=== PATIENT | female | born 1940 | race Caucasian/White ===

== ENCOUNTER 2017-01-18 11:45 | Emergency (ER) | payer MEDICARE ==
[~2017-01-18] VITALS: Ht 157.4 cm; Wt 68.0 kg
[~2017-01-18 11:45] MED LIST: ASPIRIN81 M1 PO; CENTRUM SILVER1 TA1 PO; HYDROCHLOROTHIA25 MG PO; IBU-8800 MG PO; Lopressor25 MG PO; NORVASC5 MG PO; SIMVASTATIN20 MG PO
[2017-01-18 13:16] LABS: BASO # 0.1 10*3/uL (0.0-0.1); BASO % 1.2 % (0.0-1.0); EOS # 0.4 10*3/uL (0.0-0.4); EOS % 4.2 % (1.0-4.0); HEMATOCRIT 38.3 % (37.0-47.0); HEMOGLOBIN 12.9 g/dl (12.0-16.0); LYMPH # 1.1 10*3/uL (1.3-4.4); LYMPH % 12.9 % (27.0-41.0); MEAN CELL VOLUME 89.1 fl (81.0-99.0); MEAN CORPUSCULAR HGB CONC 33.7 g/dl (33.0-37.0); MEAN PLATELET VOLUME 9.3 fl (9.6-12.3); MONO # 0.5 10*3/uL (0.1-1.0); MONO % 6.1 % (3.0-9.0); NEUT # 6.5 10*3/uL (2.3-7.9); NEUT % 75.3 % (47.0-73.0); PLATELET COUNT AUTOMATED 328 10*3/uL (130-400); RED CELL DISTRI WIDTH 12.5 % (0-14.5); WHITE BLOOD COUNT 8.6 10*3/uL (4.8-10.8)
[2017-01-18 13:28] LABS: BUN 14 mg/dl (7-24); CHLORIDE 95 mmol/L (98-107); CREATININE 0.67 mg/dL (0.55-1.02); POTASSIUM 4.3 mmol/L (3.5-5.1); SODIUM 131 mmol/L (136-145)
[2017-01-18 20:49] LABS: HEMATOCRIT 36.6 % (37.0-47.0); HEMOGLOBIN 12.5 g/dl (12.0-16.0); MEAN CELL VOLUME 90.1 fl (81.0-99.0); MEAN CORPUSCULAR HGB 30.8 pg (27.0-31.0); MEAN CORPUSCULAR HGB CONC 34.2 g/dl (33.0-37.0); MEAN PLATELET VOLUME 9.3 fl (9.6-12.3); PLATELET COUNT AUTOMATED 353 10*3/uL (130-400); RED BLOOD COUNT 4.06 10*6/uL (4.10-5.10); RED CELL DISTRI WIDTH 12.4 % (0-14.5); WHITE BLOOD COUNT 12.4 10*3/uL (4.8-10.8)
[2017-01-18 21:08] LABS: ALBUMIN 3.4 gm/dl (3.1-4.5); ALKALINE PHOSPHATASE 65 U/L (45-117); BUN 15 mg/dl (7-24); CHLORIDE 97 mmol/L (98-107); CREATININE 1.05 mg/dL (0.55-1.02); SGOT/AST 15 IU/L (3-35); SGPT/ALT 25 U/L (12-78); SODIUM 134 mmol/L (136-145); TOTAL PROTEIN 6.9 gm/dL (6.4-8.2)
[2017-01-18 21:09] LABS: TOTAL CELLS COUNTED 100 #CELLS
[2017-01-18 21:10] LABS: PLATELET SUFFICIENCY NORMAL (NORMAL); TROPONIN I 0.017 ng/ml (<0.045)
== END 2017-01-18 23:59 | disposition short-term general hospital (02) ==
LOC: ED 11:45
PROVIDERS: Internal Medicine; Physician Assistant
DX: S01.01XA Laceration without foreign body of scalp, initial encounter (principal); S70.02XA Contusion of left hip, initial encounter; S06.300A Unspecified focal traumatic brain injury without loss of consciousness, initial encounter; Z79.82 Long term (current) use of aspirin; Z79.899 Other long term (current) drug therapy; W18.39XA Other fall on same level, initial encounter; Y93.89 Activity, other specified; Y92.89 Other specified places as the place of occurrence of the external cause; Y99.8 Other external cause status

== ENCOUNTER 2017-01-26 15:09 | Emergency (ER) | payer MEDICARE ==
[~2017-01-26] VITALS: Ht 167.6 cm; Wt 83.5 kg
[2017-01-26] MEDS ORDERED: NORVASC5 MG PO (16:54)
== END 2017-01-26 17:02 | disposition home or self-care (01) ==
LOC: ED 15:09
DX: I10 Essential (primary) hypertension (principal); E87.1 Hypo-osmolality and hyponatremia; Z79.82 Long term (current) use of aspirin; Z79.899 Other long term (current) drug therapy; Z90.710 Acquired absence of both cervix and uterus

== ENCOUNTER 2018-11-25 20:10 | Emergency (ER) | payer MEDICARE ==
[~2018-11-25] VITALS: Ht 167.6 cm; Wt 81.6 kg
[2018-11-25] MEDS ORDERED: Lopressor25 MG PO (20:15)
[2018-11-25 22:50] LABS: ALBUMIN 3.7 gm/dl (3.1-4.5); ALKALINE PHOSPHATASE 83 U/L (45-117); BUN 24 mg/dl (7-24); CHLORIDE 99 mmol/L (98-107); CREATININE 0.81 mg/dL (0.55-1.02); SGOT/AST 15 IU/L (3-35); SGPT/ALT 19 U/L (12-78); SODIUM 132 mmol/L (136-145); TOTAL PROTEIN 7.7 gm/dL (6.4-8.2)
[2018-11-25 22:56] LABS: TROPONIN I < 0.015 ng/ml (<0.045)
[2018-11-25 23:25] LABS: BASO # 0.1 10*3/uL (0.0-0.1); BASO % 0.5 % (0.0-1.0); EOS % 0.2 % (1.0-4.0); HEMATOCRIT 37.8 % (37.0-47.0); HEMOGLOBIN 12.7 g/dl (12.0-16.0); LYMPH # 0.7 10*3/uL (1.3-4.4); MEAN CELL VOLUME 87.5 fl (81.0-99.0); MEAN CORPUSCULAR HGB 29.4 pg (27.0-31.0); MEAN CORPUSCULAR HGB CONC 33.6 g/dl (33.0-37.0); MEAN PLATELET VOLUME 9.7 fl (9.6-12.3); MONO # 0.4 10*3/uL (0.1-1.0); MONO % 3.2 % (3.0-9.0); NEUT # 11.8 10*3/uL (2.3-7.9); NEUT % 90.8 % (47.0-73.0); PLATELET COUNT AUTOMATED 346 10*3/uL (130-400); RED BLOOD COUNT 4.32 10*6/uL (4.10-5.10); WHITE BLOOD COUNT 12.9 10*3/uL (4.8-10.8)
[2018-11-26 02:17] LABS: BILIRUBIN NEGATIVE (NEGATIVE); BLOOD NEGATIVE (NEGATIVE); CLARITY CLEAR (CLEAR); COLOR YELLOW (YELLOW); GLUCOSE NEGATIVE (NEGATIVE); KETONE NEGATIVE (NEGATIVE); LEUKO ESTERASE TRACE (NEGATIVE); NITRITE NEGATIVE (NEGATIVE); UROBILINOGEN 0.2 E.U./dl (0.2-1.0)
[2018-11-26 02:29] LABS: BACTERIA 1+; RBC 0-2 rbc/hpf (0-2)
== END 2018-11-26 08:25 | disposition short-term general hospital (02) ==
LOC: ED 20:10
PROVIDERS: Emergency Medicine
DX: R20.0 Anesthesia of skin (principal); R29.810 Facial weakness; R55 Syncope and collapse; I10 Essential (primary) hypertension; Z86.79 Personal history of other diseases of the circulatory system; Z79.899 Other long term (current) drug therapy; Z90.710 Acquired absence of both cervix and uterus

== ENCOUNTER 2020-09-26 01:47 | Emergency (ER) | payer MEDICARE ==
[2020-09-26 02:27] LABS: BASO # 0.1 10*3/uL (0.0-0.1); BASO % 0.6 % (0.0-1.0); EOS # 0.4 10*3/uL (0.0-0.4); EOS % 3.5 % (1.0-4.0); HEMATOCRIT 38.9 % (37.0-47.0); LYMPH # 1.5 10*3/uL (1.3-4.4); LYMPH % 12.7 % (27.0-41.0); MEAN CELL VOLUME 88.6 fl (81.0-99.0); MEAN CORPUSCULAR HGB 28.7 pg (27.0-31.0); MEAN CORPUSCULAR HGB CONC 32.4 g/dl (33.0-37.0); MEAN PLATELET VOLUME 9.3 fl (9.6-12.3); MONO # 0.7 10*3/uL (0.1-1.0); MONO % 6.1 % (3.0-9.0); NEUT # 9.1 10*3/uL (2.3-7.9); NEUT % 76.8 % (47.0-73.0); PLATELET COUNT AUTOMATED 366 10*3/uL (130-400); RED BLOOD COUNT 4.39 10*6/uL (4.10-5.10); RED CELL DISTRI WIDTH 12.9 % (0-14.5); WHITE BLOOD COUNT 11.8 10*3/uL (4.8-10.8)
[2020-09-26 02:44] LABS: ALBUMIN 3.4 gm/dl (3.1-4.5); ALKALINE PHOSPHATASE 87 U/L (45-117); BUN 22 mg/dl (7-24); CHLORIDE 100 mmol/L (98-107); CREATININE 0.89 mg/dL (0.55-1.02); POTASSIUM 3.8 mmol/L (3.5-5.1); SGOT/AST 12 IU/L (3-35); SGPT/ALT 22 U/L (12-78); SODIUM 135 mmol/L (136-145); TOTAL PROTEIN 7.2 gm/dL (6.4-8.2)
[2020-09-26 02:48] LABS: TROPONIN I < 0.015 ng/ml (<0.045)
== END 2020-09-26 10:00 ==
LOC: ED 01:47
PROVIDERS: Emergency Medicine
DX: R55 Syncope and collapse (principal); R11.2 Nausea with vomiting, unspecified; Z79.899 Other long term (current) drug therapy; Z90.710 Acquired absence of both cervix and uterus

== ENCOUNTER 2023-11-03 19:09 | Inpatient (IN) | payer MEDICARE ==
[~2023-11-03] VITALS: Ht 167.6 cm; Wt 66.0 kg
[2023-11-03 19:12] VITALS: BP 144/78
[2023-11-03] MEDS ORDERED: Midazolam Hydrochloride 5 MG/5 ML VIAL IM ONE (19:30)
[2023-11-03 19:48] LABS: BASO # 0.1 10*3/uL (0.0-0.1); BASO % 1.5 % (0.0-1.0); EOS # 0.7 10*3/uL (0.0-0.4); EOS % 13.2 % (1.0-4.0); LYMPH # 1.3 10*3/uL (1.3-4.4); LYMPH % 24.2 % (27.0-41.0); MEAN CELL VOLUME 90.5 fl (81.0-99.0); MEAN CORPUSCULAR HGB 29.8 pg (27.0-31.0); MEAN CORPUSCULAR HGB CONC 32.9 g/dl (33.0-37.0); MEAN PLATELET VOLUME 9.3 fl (9.6-12.3); MONO # 0.4 10*3/uL (0.1-1.0); MONO % 7.8 % (3.0-9.0); NEUT # 2.9 10*3/uL (2.3-7.9); NEUT % 53.1 % (47.0-73.0); PLATELET COUNT AUTOMATED 281 10*3/uL (130-400); WHITE BLOOD COUNT 5.4 10*3/uL (4.8-10.8)
[2023-11-03 20:05] LABS: BUN 22 mg/dl (9-23); CHLORIDE 100 mmol/L (98-107); POTASSIUM 4.6 mmol/L (3.4-5.1)
[2023-11-03] MEDS ORDERED: MORPHINE Sulfate 2 MG/ML SYR IM ONE (22:05)
[2023-11-03] MEDS ORDERED: BISACODYL 10 MG SUPP R PRN (22:30)
[2023-11-03] MEDS ORDERED: Ondansetron Hydrochloride 4 MG/2 ML VIAL IV PRN (22:30)
[2023-11-03] MEDS ORDERED: BISACODYL 5 MG TAB PO PRN (22:30)
[2023-11-03] MEDS ORDERED: Magnesium Hydroxide 30 ML UDC PO PRN (22:30)
[2023-11-03] MEDS ORDERED: ACETAMINOPHEN 325 MG TAB PO PRN (22:30)
[2023-11-03] MEDS ORDERED: MORPHINE Sulfate 2 MG/ML SYR IV PRN (22:30)
[2023-11-03] MEDS ORDERED: ACETAMINOPHEN 650 MG SUPP R PRN (22:30)
[2023-11-03] MEDS ORDERED: Acetaminophen/Hydrocodone 5 MG/325 MG TABLET PO PRN (22:30)
[2023-11-03 23:05] VITALS: BP 139/70
[2023-11-04] MEDS ORDERED: ATORVASTATIN CA20 M1 PO (02:30)
[2023-11-04] MEDS ORDERED: AMLODIPINE BESY10 MG PO (03:22)
[2023-11-04] MEDS ORDERED: ESCITALOPRAM OX10 MG PO (03:25)
[2023-11-04] MEDS ORDERED: NEURONTIN300 MG PO (03:26)
[2023-11-04] MEDS ORDERED: FISH OIL 1,0001 EAC1 PO (03:27)
[2023-11-04] MEDS ORDERED: PANTOPRAZOLE SO40 MG PO (03:30)
[2023-11-04] MEDS ORDERED: VITAMIN D310 MC1 PO (03:30)
[2023-11-04] MEDS ORDERED: MELATONIN3 MG PO (03:31)
[2023-11-04] MEDS ORDERED: BIOTENE DRY M1000 ML PO (03:32)
[2023-11-04] MEDS ORDERED: SENNA8.6 MG PO (03:33)
[2023-11-04] MEDS ORDERED: MIRALAX17 GM PO (03:34)
[2023-11-04] MEDS ORDERED: SODIUM CHLORIDE 0.9% 1,000 ML IV ONE (05:55)
[2023-11-04 06:15] LABS: HEMATOCRIT 38.6 % (37.0-47.0); MEAN CELL VOLUME 91.3 fl (81.0-99.0); MEAN CORPUSCULAR HGB 29.8 pg (27.0-31.0); MEAN CORPUSCULAR HGB CONC 32.6 g/dl (33.0-37.0); MEAN PLATELET VOLUME 9.7 fl (9.6-12.3); PLATELET COUNT AUTOMATED 250 10*3/uL (130-400); RED BLOOD COUNT 4.23 10*6/uL (4.10-5.10); RED CELL DISTRI WIDTH 13.1 % (0-14.5); WHITE BLOOD COUNT 14.4 10*3/uL (4.8-10.8)
[2023-11-04 06:18] LABS: MANUAL DIFF REFLEX YES
[2023-11-04 07:29] LABS: PLATELET SUFFICIENCY NORMAL (NORMAL); TOTAL CELLS COUNTED 100 #CELLS
[2023-11-04 07:58] LABS: ALKALINE PHOSPHATASE 65 U/L (46-116); BUN 26 mg/dl (9-23); CHLORIDE 101 mmol/L (98-107); POTASSIUM 4.2 mmol/L (3.4-5.1); SGPT/ALT 25 U/L (5-49); TOTAL PROTEIN 6.2 gm/dL (6.0-8.0)
[2023-11-04 08:17] VITALS: BP 120/49
[2023-11-04 11:38] VITALS: BP 126/52
[2023-11-04 14:49] LABS: BILIRUBIN Negative (Negative); BLOOD Negative (Negative); CLARITY Clear (Clear); COLOR Yellow (Yellow); GLUCOSE Negative (Negative); KETONE Negative (Negative); LEUKO ESTERASE 1+ (Negative); NITRITE Negative (Negative); PH 6.5 (4.5-8.0); SPECIFIC GRAVITY 1.015 (1.001-1.030); UROBILINOGEN 0.2 E.U./dl (0.0-1.0)
[2023-11-04 15:06] LABS: BACTERIA 1+
[2023-11-04 15:07] LABS: HYALINE CAST 0-2
[2023-11-04 15:15] VITALS: BP 151/58
[2023-11-04 20:00] VITALS: BP 157/58
[2023-11-05] VITALS (9 sets, daily range): BP systolic 114–149; BP diastolic 52–85
[2023-11-05 07:20] LABS: BASO # 0.1 10*3/uL (0.0-0.1); BASO % 0.6 % (0.0-1.0); EOS # 0.8 10*3/uL (0.0-0.4); EOS % 7.1 % (1.0-4.0); HEMATOCRIT 35.7 % (37.0-47.0); LYMPH # 1.3 10*3/uL (1.3-4.4); MEAN CELL VOLUME 88.6 fl (81.0-99.0); MEAN CORPUSCULAR HGB 29.5 pg (27.0-31.0); MEAN CORPUSCULAR HGB CONC 33.3 g/dl (33.0-37.0); MEAN PLATELET VOLUME 10.2 fl (9.6-12.3); MONO # 0.6 10*3/uL (0.1-1.0); MONO % 5.1 % (3.0-9.0); NEUT # 8.2 10*3/uL (2.3-7.9); NEUT % 74.9 % (47.0-73.0); PLATELET COUNT AUTOMATED 240 10*3/uL (130-400); RED BLOOD COUNT 4.03 10*6/uL (4.10-5.10); RED CELL DISTRI WIDTH 13.4 % (0-14.5)
[2023-11-05 07:35] LABS: BUN 21 mg/dl (9-23); CHLORIDE 100 mmol/L (98-107); POTASSIUM 3.9 mmol/L (3.4-5.1)
[2023-11-05] MEDS ORDERED: ceFAZolin sodium/sodium chlor 20 ML IV ONE ×2 (08:00→08:04)
[2023-11-05] MEDS ORDERED: Lactated Ringer's Solution 1,000 ML IV ONE ×3 (08:00→09:25)
[2023-11-05] MEDS ORDERED: ACETAMINOPHEN 100 ML IV ONE (08:03)
[2023-11-05] MEDS ORDERED: Bupivacaine Hydrochloride/Ep2 30 ML VIAL ONE (08:03)
[2023-11-05] MEDS ORDERED: EPINEPHrine/Lidocaine Hydroc 20 ML VIAL ONE (09:09)
[2023-11-05] MEDS ORDERED: ASPIRIN ENTERIC COATED 81 MG TAB PO SCH (10:00)
[2023-11-05] MEDS ORDERED: Cholecalciferol 2,000 UNIT TABLET (50 MCG) PO SCH (10:00)
[2023-11-05] MEDS ORDERED: MORPHINE Sulfate 2 MG/ML SYR IV PRN (10:00)
[2023-11-05] MEDS ORDERED: Phenylephrine Hydrochloride 1 MG/10 ML SYRINGE IV ONE (11:02)
[2023-11-05] MEDS ORDERED: Dexamethasone Sodium Phospha 4 MG/ML VIAL IV ONE (11:02)
[2023-11-05] MEDS ORDERED: PROPOFOL 200 MG/20 ML VIAL IV ONE (11:02)
[2023-11-05] MEDS ORDERED: Ondansetron Hydrochloride 4 MG/2 ML VIAL IV ONE (11:02)
[2023-11-05] MEDS ORDERED: SEVOFLURANE 250 ML BOT INH ONE (11:02)
[2023-11-05] MEDS ORDERED: ceFAZolin sodium 1 GM in SYRINGE INFUSION 10 ML IV SCH (14:00)
[2023-11-05] MEDS ORDERED: ATORVASTATIN CALCIUM 20 MG TAB PO SCH (18:00)
[2023-11-05] MEDS ORDERED: GABAPENTIN 300 MG CAP PO SCH (22:00)
[2023-11-05] MEDS ORDERED: amLODIPine besylate 10 MG TAB PO SCH (22:00)
[2023-11-05] MEDS ORDERED: Metoprolol Tartrate 25 MG TAB PO SCH (22:00)
[2023-11-05] MEDS ORDERED: Aloe Vera/Carboxymethylcellu 44.3 ML CANS PO SCH (22:00)
[2023-11-05] MEDS ORDERED: ESCITALOPRAM OXALATE 10 MG TAB PO SCH (22:00)
[2023-11-05] MEDS ORDERED: Sennosides A and B 8.6 MG TAB PO SCH (22:00)
[2023-11-05] MEDS ORDERED: Melatonin 3 MG TABLET PO SCH (22:00)
[2023-11-06] VITALS: BP 141/60
[2023-11-06 07:24] LABS: BASO % 0.1 % (0.0-1.0); EOS % 0.1 % (1.0-4.0); HEMATOCRIT 31.9 % (37.0-47.0); LYMPH % 8.8 % (27.0-41.0); MEAN CELL VOLUME 89.6 fl (81.0-99.0); MEAN CORPUSCULAR HGB 30.3 pg (27.0-31.0); MEAN CORPUSCULAR HGB CONC 33.9 g/dl (33.0-37.0); MEAN PLATELET VOLUME 10.2 fl (9.6-12.3); MONO # 0.6 10*3/uL (0.1-1.0); MONO % 5.4 % (3.0-9.0); NEUT # 9.9 10*3/uL (2.3-7.9); NEUT % 85.2 % (47.0-73.0); PLATELET COUNT AUTOMATED 225 10*3/uL (130-400); RED BLOOD COUNT 3.56 10*6/uL (4.10-5.10); RED CELL DISTRI WIDTH 13.2 % (0-14.5); WHITE BLOOD COUNT 11.7 10*3/uL (4.8-10.8)
[2023-11-06 07:39] LABS: BUN 20 mg/dl (9-23); CHLORIDE 100 mmol/L (98-107); POTASSIUM 4.3 mmol/L (3.4-5.1)
[2023-11-06 08:00] VITALS: BP 154/63
[2023-11-06] MEDS ORDERED: MULTIVITAMIN 1 TAB TAB PO SCH (10:00)
[2023-11-06] MEDS ORDERED: Fish Oil 500 MG CAP PO SCH (10:00)
[2023-11-06] MEDS ORDERED: Polyethylene Glycol 3350 17 GM PACKET PO SCH (10:00)
[2023-11-06] MEDS ORDERED: Pantoprazole Sodium 40 MG TAB PO SCH (10:00)
[2023-11-06] MEDS ORDERED: Vitamin D 1,000 IU TAB (25 MCG) PO SCH (10:00)
[2023-11-06] MEDS ORDERED: ASPIRIN ADULT L81 M2 PO (11:49)
[2023-11-06 12:00] VITALS: BP 150/60
[2023-11-06 16:00] VITALS: BP 162/67
[2023-11-06 20:00] VITALS: BP 148/59
[2023-11-07] VITALS: BP 145/59
[2023-11-07 08:00] VITALS: BP 140/59
[2023-11-07 12:00] VITALS: BP 115/53
== END 2023-11-07 13:10 | DRG 480 ==
LOC: ED 19:09 → EDHOLD 22:07 → 4E 22:07
PROVIDERS: Internal Medicine; Student in an Organized Health Care Education/Training Program; ADMIT Internal Medicine; ATTEND Internal Medicine
PROC: 0QH734Z Insertion of Internal Fixation Device into Left Upper Femur, Percutaneous Approach (ICD-10-PCS; principal; 2023-11-05)
DX: S72.012A Unspecified intracapsular fracture of left femur, initial encounter for closed fracture (principal); J96.01 Acute respiratory failure with hypoxia; E87.1 Hypo-osmolality and hyponatremia; E44.0 Moderate protein-calorie malnutrition; F03.93 Unspecified dementia, unspecified severity, with mood disturbance; D53.9 Nutritional anemia, unspecified; R73.9 Hyperglycemia, unspecified; D72.829 Elevated white blood cell count, unspecified; I10 Essential (primary) hypertension; E78.00 Pure hypercholesterolemia, unspecified; K21.9 Gastro-esophageal reflux disease without esophagitis; Z86.73 Personal history of transient ischemic attack (TIA), and cerebral infarction without residual deficits; Z79.899 Other long term (current) drug therapy; Z79.01 Long term (current) use of anticoagulants; Z79.2 Long term (current) use of antibiotics; Z90.710 Acquired absence of both cervix and uterus; Z98.42 Cataract extraction status, left eye; Z68.23 Body mass index [BMI] 23.0-23.9, adult; Z98.41 Cataract extraction status, right eye; Z83.3 Family history of diabetes mellitus; Z82.49 Family history of ischemic heart disease and other diseases of the circulatory system; W18.39XA Other fall on same level, initial encounter; Y93.89 Activity, other specified; Y92.89 Other specified places as the place of occurrence of the external cause; Y99.8 Other external cause status

== ENCOUNTER → 2023-12-01 | Outpatient (CLI) | payer MEDICARE ==
[~2023-12-01] MED LIST changes: +AMLODIPINE BESY10 MG PO; +ASPIRIN ADULT L81 M2 PO; +ATORVASTATIN CA20 M1 PO; +BIOTENE DRY M1000 ML PO; +ESCITALOPRAM OX10 MG PO; +FISH OIL 1,0001 EAC1 PO; +MELATONIN3 MG PO; +MIRALAX17 GM PO; +NEURONTIN300 MG PO; +PANTOPRAZOLE SO40 MG PO; +SENNA8.6 MG PO; +VITAMIN D310 MC1 PO
== END | disposition home or self-care (01) ==
LOC: ORTHO 02:02
PROVIDERS: ATTEND Orthopaedic Surgery
DX: S72.012D Unspecified intracapsular fracture of left femur, subsequent encounter for closed fracture with routine healing (principal); W19.XXXD Unspecified fall, subsequent encounter

== ENCOUNTER → 2024-01-12 | Outpatient (CLI) | payer MEDICARE | END | disposition home or self-care (01) | LOC: ORTHO 02:09 | PROVIDERS: ATTEND Orthopaedic Surgery | DX: S72.012D Unspecified intracapsular fracture of left femur, subsequent encounter for closed fracture with routine healing (principal); X58.XXXD Exposure to other specified factors, subsequent encounter ==

== ENCOUNTER → 2024-03-15 | Outpatient (CLI) | payer MEDICARE | END | disposition home or self-care (01) | LOC: ORTHO 02:02 | PROVIDERS: ATTEND Orthopaedic Surgery | DX: S72.012D Unspecified intracapsular fracture of left femur, subsequent encounter for closed fracture with routine healing (principal); X58.XXXD Exposure to other specified factors, subsequent encounter ==

== ENCOUNTER 2024-05-02 15:48 | Emergency (ER) | payer MEDICARE ==
[~2024-05-02] VITALS: Wt 76.2 kg
[2024-05-02] MEDS ORDERED: MORPHINE Sulfate 2 MG/ML SYR IV ONE (15:55)
[2024-05-02] MEDS ORDERED: Ondansetron Hydrochloride 4 MG/2 ML VIAL IV ONE (15:55)
[2024-05-02] MEDS ORDERED: SODIUM CHLORIDE 0.9% 1,000 ML IV ONE ×2 (15:55→17:00)
[2024-05-02 16:13] LABS: BASO # 0.1 10*3/uL (0.0-0.1); BASO % 1.2 % (0.0-1.0); EOS # 0.7 10*3/uL (0.0-0.4); HEMATOCRIT 35.2 % (37.0-47.0); MEAN CELL VOLUME 90.3 fl (81.0-99.0); MEAN CORPUSCULAR HGB 29.5 pg (27.0-31.0); MEAN CORPUSCULAR HGB CONC 32.7 g/dl (33.0-37.0); MEAN PLATELET VOLUME 8.9 fl (9.6-12.3); MONO # 0.6 10*3/uL (0.1-1.0); MONO % 9.7 % (3.0-9.0); NEUT # 3.8 10*3/uL (2.3-7.9); NEUT % 58.3 % (47.0-73.0); PLATELET COUNT AUTOMATED 307 10*3/uL (130-400); RED CELL DISTRI WIDTH 13.8 % (0-14.5); WHITE BLOOD COUNT 6.5 10*3/uL (4.8-10.8)
[2024-05-02 16:32] LABS: POTASSIUM 4.8 mmol/L (3.4-5.1)
[2024-05-02] MEDS ORDERED: PERCOCET 5-3251 EACH PO (17:06)
== END 2024-05-02 18:28 | disposition home or self-care (01) ==
LOC: ED 15:48
PROVIDERS: Emergency Medicine
DX: S22.32XA Fracture of one rib, left side, initial encounter for closed fracture (principal); S09.90XA Unspecified injury of head, initial encounter; R42 Dizziness and giddiness; E11.9 Type 2 diabetes mellitus without complications; I10 Essential (primary) hypertension; E78.5 Hyperlipidemia, unspecified; F03.90 Unspecified dementia, unspecified severity, without behavioral disturbance, psychotic disturbance, mood disturbance, and anxiety; Z79.82 Long term (current) use of aspirin; Z79.899 Other long term (current) drug therapy; Z90.711 Acquired absence of uterus with remaining cervical stump; Z90.89 Acquired absence of other organs; W18.39XA Other fall on same level, initial encounter; Y93.89 Activity, other specified; Y92.091 Bathroom in other non-institutional residence as the place of occurrence of the external cause; Y99.8 Other external cause status

== ENCOUNTER → 2024-07-10 | Outpatient (CLI) | payer MEDICARE ==
[~2024-07-10] MED LIST changes: +PERCOCET 5-3251 EACH PO
== END | disposition home or self-care (01) ==
LOC: ORTHO 02:15
PROVIDERS: ATTEND Orthopaedic Surgery
DX: S72.012D Unspecified intracapsular fracture of left femur, subsequent encounter for closed fracture with routine healing (principal); Z47.89 Encounter for other orthopedic aftercare; X58.XXXD Exposure to other specified factors, subsequent encounter

== ENCOUNTER 2025-01-18 10:06 | Emergency (ER) | payer MEDICARE ==
[~2025-01-18] VITALS: Ht 172.7 cm; Wt 82.3 kg
[2025-01-18] MEDS ORDERED: SODIUM CHLORIDE 0.9% 1,000 ML IV ONE (10:15)
[2025-01-18 10:39] LABS: BASO # 0.1 10*3/uL (0.0-0.1); BASO % 1.3 % (0.0-1.0); EOS # 0.9 10*3/uL (0.0-0.4); EOS % 14.4 % (1.0-4.0); MEAN CELL VOLUME 88.9 fl (81.0-99.0); MEAN CORPUSCULAR HGB 28.7 pg (27.0-31.0); MEAN PLATELET VOLUME 8.8 fl (9.6-12.3); MONO # 0.5 10*3/uL (0.1-1.0); MONO % 8.8 % (3.0-9.0); NEUT # 3.2 10*3/uL (2.3-7.9); NEUT % 51.3 % (47.0-73.0); NUCLEATED RED BLOOD CELL 0.0 % (0.0-0.0); NUCLEATED RED BLOOD CELL 0.0 10*3/uL (0.0-0.0); PLATELET COUNT AUTOMATED 321 10*3/uL (130-400); RED CELL DISTRI WIDTH 13.0 % (0-14.5)
[2025-01-18] MEDS ORDERED: RIVASTIGMINE TAR3 M1 PO (10:45)
[2025-01-18] MEDS ORDERED: IBU-200200 MG PO (10:56)
[2025-01-18 10:57] LABS: BUN 14 mg/dl (9-23)
[2025-01-18] MEDS ORDERED: TYLENOL325 M2 PO (11:05)
[2025-01-18] MEDS ORDERED: MILK OF MA400 MG/52 PO (11:06)
[2025-01-18] MEDS ORDERED: BISACODYL10 MG R (11:07)
[2025-01-18] MEDS ORDERED: VOLTAREN ARTHRI20 GM T (11:08)
[2025-01-18] MEDS ORDERED: HYDROXYZINE PAM25 M1 PO (11:09)
== END 2025-01-18 12:54 | disposition home or self-care (01) ==
LOC: ED 10:06
PROVIDERS: Internal Medicine
DX: R42 Dizziness and giddiness (principal); Z79.82 Long term (current) use of aspirin; Z79.899 Other long term (current) drug therapy; Z90.710 Acquired absence of both cervix and uterus; Z90.89 Acquired absence of other organs; Z98.890 Other specified postprocedural states; G30.9 Alzheimer's disease, unspecified; F02.80 Dementia in other diseases classified elsewhere, unspecified severity, without behavioral disturbance, psychotic disturbance, mood disturbance, and anxiety; W18.39XA Other fall on same level, initial encounter; Y93.89 Activity, other specified; Y92.128 Other place in nursing home as the place of occurrence of the external cause; Y99.8 Other external cause status